=== PATIENT | male | born 1995 ===

== ENCOUNTER 2019-05-13 00:38 | Emergency (ER) | payer MEDICAID, SELFPAY ==
[2019-05-13 00:49] VITALS: BP 140/77; PULSE 94; RESP 20; TEMP 36.5; O2SAT 97
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
[2019-05-13] MEDS: hydrOXYzine PAMOATE 25 MG CAP PO (01:26)
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
[2019-05-13 07:27] VITALS: BP 140/77; PULSE 94; RESP 20; TEMP 36.5; O2SAT 97
== END 2019-05-13 07:35 | disposition home or self-care (01) ==
PROVIDERS: Emergency Provider Emergency Medicine
DX: F41.9 Anxiety disorder, unspecified (principal); Z59.0 Homelessness
CPT/HCPCS: 99285; 99283